=== PATIENT | male | born 1965 | race Caucasian/White ===

== ENCOUNTER 2016-03-02 16:36 | Emergency (ER) | payer OTHER ==
[~2016-03-02] VITALS: Ht 172.7 cm; Wt 81.5 kg
[~2016-03-02 16:36] MED LIST: BACT800T5 PO; CEPH500C3 PO; IBUP800T23 PO
[2016-03-02 16:49] VITALS: BP 160/101; PULSE 67; RESP 16; TEMP 98.7; O2SAT 98
[2016-03-02 17:54] VITALS: BP 180/86
--- NOTE | 2016-03-02 17:57 | PD ---
HPI Chief Complaint: Skin Problem Time Seen by Provider: 17:52 Travel History International Travel<30 days: No Contact w/Intl Traveler<30days: No Traveled to known affect area: No History of Present Illness HPI 50-year-old male presents to the emergency department with complaints of abscess to his right armpit 4 days. Reports headache to the back of his neck for the last 4 days also; when asked the location the patient points to the back of his neck. Describes the pain as a throbbing pain. This is constant. Denies any heavy lifting strain, neck injury. Says the pain radiates up to his head. Denies fever, chills. Reports vomiting after taking an aspirin on Tuesday morning, but has not vomited since. Denies nausea. Had abscesses in his left armpit back in August 2015. Denies paresthesias, loss of sensation, decreased range of motion, decreased strength to affected extremity. Tried an [id number] topical boil medication without relief of symptoms. His blood pressure is elevated in the ER. He denies history of hypertension and does not currently take medications. Tobacco use daily. Does not have primary care provider. Denies allergies. Denies significant past medical history. No other modifying factors or associated signs and symptoms. 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 They are fluctuant but there is no pointing or drainage. There is a zone of inflammation around it but no lymphangitis. Right upper extremity is supple and non-tense with 2+ radial pulses and sensory intact without erythema or edema. HEAD: Atraumatic. Normocephalic. EYES: Pupils equal and round. No scleral icterus. No injection or drainage. ENT: Mucosa pink and moist. Airway patent. NECK: Trachea midline. No lymphadenopathy. CARDIOVASCULAR: Regular rate and rhythm. No murmur appreciated. RESPIRATORY: No accessory muscle use. Sounds clear and equal bilaterally. GASTROINTESTINAL: Abdomen soft, non-tender, nondistended. Positive bowel sounds. No hepato-splenomegaly, or palpable masses. No guarding. MUSCULOSKELETAL: No obvious deformities. No clubbing. No cyanosis. No edema. NEUROLOGICAL: Awake and alert. Oriented 3. No obvious cranial nerve deficits. Motor grossly within normal limits. Normal speech. PSYCHIATRIC: Appropriate mood and affect; insight and judgment normal. Data Data Last Documented VS Vital Signs Date Time Temp Pulse Resp B/P Pulse Ox O2 Delivery O2 Flow Rate FiO2 03/02/16 18:46 165/80 03/02/16 16:49 98.7 67 16 98 Orders Wound Culture And Gram Stain (03/02/16 17:48) Ketorolac Inj (Toradol Inj) (03/02/16 18:00) MDM Medical Decision Making Medical Screen Exam Complete: Yes Emergency Medical Condition: Yes Medical Record Reviewed: Yes Differential Diagnosis Abscess, folliculitis, hypertension, acute headache, pain Narrative Course 50-year-old male with 3 abscesses to his right armpit that are fluctuant. See my procedure note for incision and drainage. He is also complaining of headache that he has had for the last 4 days with onset of the abscesses to the right armpit. Denies fever, chills, nausea, vomiting. Blood pressure is elevated in the ER. He denies history of hypertension and does not take medications. I reviewed the patient's medical records and his last blood pressure was normal. I feel that his elevated blood pressure and headache related to pain. I will treat the patient with Toradol and reevaluate the patient. Toradol administered in the ER. 1845: BP 165/80. Patient reports improvement in pain in the back of his neck. Dr. Peralta, my attending physician, and he agrees the patient is stable for discharge and can follow up outpatient. Keflex, Bactrim, ibuprofen prescribed for home. Instructed patient to take her blood pressure periodically and to log in a diary and follow up with primary care provider and he verbalized understanding and agreement. Patient is medically cleared and stable for discharge. Discussed reasons to return to the emergency department. Instructed patient to follow up with primary care provider. Patient agrees with treatment plan. The patients vital signs are stable and the patient is stable for outpatient follow-up and treatment. Patient discharged home, stable and in no acute distress. Procedures Procedure Narrative INCISION AND DRAINAGE OF ABSCESS: The area was prepped and was sterilely draped. Ethyl chloride was used to anesthetize the area. The area was properly anesthetized. A number 11 scalpel was used to make a 0.5-cm incision across the area of the abscess. Cultures were obtained. The abscess was drained an irrigated with normal saline. Sterile dressing applied. Diagnosis Primary Impression: Abscess of right axilla Additional Impression: Acute headache Qualified Code: R51 - Acute nonintractable headache, unspecified headache type Referrals: Primary Care Physician Patient Instructions: Abscess (ED), Abscess Follow-up (ED), Abscess Incision and Drainage (ED), Acute Headache (ED), General Instructions, Hypertension (ED) Additional Instructions: Complete full course of antibiotics Warm compresses to the affected area Keep area clean and dry Ibuprofen or Tylenol as recommended for pain and inflammation Check blood pressure periodically and follow-up with primary care provider Follow-up with primary care provider Return to emergency department immediately with worsening of symptoms Med/Other Pt SpecificInfo: Prescription(s) given Scripts Ibuprofen 800 Mg Qun682 Mg PO Q6HR PRN (PAIN) #30 TAB Ref 0 Prov:Blanca Lindo 03/02/16 Sulfamethoxazole-Trimethoprim (Bactrim DS)800-160 Mg Tab1 Tab PO BID 10 Days Ref 0 Prov:Blanca Lindo 03/02/16 Cephalexin (Keflex)500 Mg Isu923 Mg PO Q6H 10 Days Ref 0 Prov:Blanca Lindo 03/02/16 Disposition: 01 DISCHARGE HOME Condition: Stable Blanca Lindo Mar 02, 2016 17:57
[2016-03-02] MEDS ORDERED: IBUPROFEN 800 MG TAB PO ONE (18:00)
[2016-03-02] MEDS ORDERED: KETOROLAC TROMETHAMINE 60 MG/2 ML (IM) VIAL IM ONE (18:00)
[2016-03-02 18:46] VITALS: BP 165/80
[2016-03-02] MEDS ORDERED: BACT800T5 PO (18:54)
[2016-03-02] MEDS ORDERED: IBUP800T23 PO (18:54)
[2016-03-02] MEDS ORDERED: CEPH-460 PO (18:54)
== END 2016-03-02 19:20 | disposition home or self-care (01) ==
LOC: PHEFT 16:36
DX: L02.411 Cutaneous abscess of right axilla (principal); R51 Headache; M54.2 Cervicalgia; R03.0 Elevated blood-pressure reading, without diagnosis of hypertension; B95.62 Methicillin resistant Staphylococcus aureus infection as the cause of diseases classified elsewhere; E11.9 Type 2 diabetes mellitus without complications; F17.200 Nicotine dependence, unspecified, uncomplicated
CPT/HCPCS: 10060; 86403; 87070; 87186; 96372; 99284; J1885; 87205

== ENCOUNTER 2016-12-09 11:03 | Emergency (ER) | payer OTHER ==
[~2016-12-09 11:03] MED LIST changes: +CEPH-460 PO; -CEPH500C3 PO
[2016-12-09 11:16] VITALS: BP 195/91; PULSE 63; RESP 20; TEMP 97.5; O2SAT 100
[2016-12-09] MEDS ORDERED: SODIUM CHLOR 0.9% 1000 ML INJ 1,000 ML IV SCH (11:28)
[2016-12-09] MEDS ORDERED: ONDANSETRON HCL 4 MG/2 ML VIAL IVP ONE (11:30)
[2016-12-09] MEDS ORDERED: LORazepam 2 MG/ML VIAL IV PUSH ONE (11:30)
[2016-12-09] MEDS ORDERED: KETOROLAC TROMETHAMINE 30 MG/ML (IVP) VIAL IVP ONE (11:30)
[2016-12-09] MEDS ORDERED: SODIUM CHLORIDE 0.9% FLUSH 10 ML FLUSH IV FLUSH PRN (11:30)
--- NOTE | 2016-12-09 11:32 | PD ---
HPI Chief Complaint: Flank/Kidney Pain Time Seen by Provider: 11:28 Travel History International Travel<30 days: No Contact w/Intl Traveler<30days: No Traveled to known affect area: No History of Present Illness HPI 51-year-old male patient with history of kidney stones, presents to the ER today because of one day history of left flank pains with radiation down the left side. He states it feels like his previous kidney stones. He has been nauseous and vomiting according to his . He has not had diarrhea, fevers, urinary symptoms, or any other symptoms. Modifying Factors: None Associated Signs & Symptoms: Left flank pain Risk Factors: Kidney stone history PFSH Past Medical History Diabetes: Yes Patient Takes Glucophage: No Diminished Hearing: No Kidney Stones: Yes ?: Not Social History Alcohol Use: Yes (weekends) Tobacco Use: Yes (03/01) Substance Use: No Allergies-Medications (Allergen,Severity, Reaction): Coded Allergies: *MDRO Multi-Drug Resistant Organism (Verified Adverse Reaction, Unknown, 12/09/16) MRSA (arm-09/19/15 & 03/02/16) Reported Meds & Prescriptions Reported Meds & Active Scripts Active No Active Prescriptions or Reported Medications Review of Systems Except as stated in HPI: all other systems reviewed are Neg Physical Exam Narrative GENERAL: Well-developed no age male patient currently in moderate distress. Awake and oriented 3. SKIN: Focused skin assessment warm/dry. HEAD: Atraumatic. Normocephalic. EYES: Pupils equal and round. No scleral icterus. No injection or drainage. ENT: No nasal bleeding or discharge. Mucous membranes pink and moist. NECK: Trachea midline. No JVD. CARDIOVASCULAR: Regular rate and rhythm. No murmur appreciated. RESPIRATORY: No accessory muscle use. Clear to auscultation. Breath sounds equal bilaterally. GASTROINTESTINAL: Abdomen soft, left-sided abdominal tenderness without guarding or rebound, nondistended. Hepatic and splenic margins not palpable. MUSCULOSKELETAL: No obvious deformities. No clubbing. No cyanosis. No edema. BACK: Left CVA tenderness. No rash. No point tenderness on palpation of the spine. NEUROLOGICAL: Awake and alert. No obvious cranial nerve deficits. Motor grossly within normal limits. Normal speech. PSYCHIATRIC: Appropriate mood and affect; insight and judgment normal. Data Data Last Documented VS Vital Signs Date Time Temp Pulse Resp B/P (MAP) Pulse Ox O2 Delivery O2 Flow Rate FiO2 12/09/16 12:39 14 12/09/16 11:40 54 137/76 (96) 99 Room Air 12/09/16 11:16 97.5 Orders Orders Complete Blood Count With Diff (12/09/16 11:28) Comprehensive Metabolic Panel (12/09/16 11:28) Lipase (12/09/16 11:28) Urinalysis - C+S If Indicated (12/09/16 11:28) Ct Abd/Pel W/O Iv Contrast (12/09/16 11:28) Iv Access Insert/Monitor (12/09/16 11:28) Ecg Monitoring (12/09/16:) Oximetry (12/09/16 11:28) Ondansetron Inj (Zofran Inj) (12/09/16 11:30) Sodium Chlor 0.9% 1000 Ml Inj (Ns 1000 M (12/09/16 11:28) Sodium Chloride 0.9% Flush (Ns Flush) (12/09/16 11:30) Ketorolac Inj (Toradol Inj) (12/09/16 11:30) Lorazepam Inj (Ativan Inj) (12/09/16 11:30) Ed Discharge Order (12/09/16 12:57) Labs Laboratory Tests Test 12/09/16 11:30 12/09/16 12:30 White Blood Count 9.8 TH/MM3 Red Blood Count 4.96 MIL/MM3 Hemoglobin 15.2 GM/DL Hematocrit 45.0 % Mean Corpuscular Volume 90.7 FL Mean Corpuscular Hemoglobin 30.6 PG Mean Corpuscular Hemoglobin Concent 33.8 % Red Cell Distribution Width 13.2 % Platelet Count 324 TH/MM3 Mean Platelet Volume 6.7 FL Neutrophils (%) (Auto) 66.6 % Lymphocytes (%) (Auto) 23.2 % Monocytes (%) (Auto) 5.8 % Eosinophils (%) (Auto) 3.6 % Basophils (%) (Auto) 0.8 % Neutrophils # (Auto) 6.4 TH/MM3 Lymphocytes # (Auto) 2.3 TH/MM3 Monocytes # (Auto) 0.6 TH/MM3 Eosinophils # (Auto) 0.4 TH/MM3 Basophils # (Auto) 0.1 TH/MM3 CBC Comment DIFF FINAL Differential Comment Blood Urea Nitrogen 22 MG/DL Creatinine 1.10 MG/DL Random Glucose 133 MG/DL Total Protein 7.7 GM/DL Albumin 3.9 GM/DL Calcium Level 8.9 MG/DL Alkaline Phosphatase 89 U/L Aspartate Amino Transf (AST/SGOT) 23 U/L Alanine Aminotransferase (ALT/SGPT) 42 U/L Total Bilirubin 0.7 MG/DL Sodium Level 142 MEQ/L Potassium Level 3.3 MEQ/L Chloride Level 109 MEQ/L Carbon Dioxide Level 23.7 MEQ/L Anion Gap 9 MEQ/L Estimat Glomerular Filtration Rate 71 ML/MIN Lipase 213 U/L Urine Collection Type CLEAN CATCH Urine Color YELLOW Urine Turbidity CLEAR Urine pH 7.0 Urine Specific [place] 1.013 Urine Protein TRACE mg/dL Urine Glucose (UA) NEG mg/dL Urine Ketones 15 mg/dL Urine Occult Blood LARGE Urine Nitrite NEG Urine Bilirubin NEG Urine Leukocyte Esterase NEG Urine RBC 100-200 /hpf Urine WBC 6-8 /hpf Urine Squamous Epithelial Cells 0-5 /hpf Microscopic Urinalysis Comment CULT NOT INDICATED Urine Collection Time 12:30 [facility] Medical Decision Making Medical Screen Exam Complete: Yes Emergency Medical Condition: Yes Medical Record Reviewed: Yes Interpretation(s) Laboratory Tests Test 12/09/16 11:30 12/09/16 12:30 Mean Platelet Volume 6.7 FL (7.0-11.0) Blood Urea Nitrogen 22 MG/DL (7-18) Random Glucose 133 MG/DL (74-106) Potassium Level 3.3 MEQ/L (3.5-5.1) Chloride Level 109 MEQ/L (98-107) Estimat Glomerular Filtration Rate 71 ML/MIN (>89) Urine Ketones 15 mg/dL (NEG) Urine Occult Blood LARGE (NEG) Urine RBC 100-200 /hpf (0-3) Urine WBC 6-8 /hpf (0-5) Last 24 hours Impressions Abdomen/Pelvis CT 12/09/16 1128 Signed Impressions: Service Date/Time: November 11:46 - CONCLUSION: 4 mm distal left ureteral stone just below the level of the SI joint 4 cm proximal to the UV junction. This yields hydroureter proximally and hydronephrosis. Additionally appreciated is a calyceal 3 or 4 mm stone upper pole of the left kidney Manjinder Lara MD Differential Diagnosis Left flank pains and left sided abdominal pains: Renal colic versus obstruction versus other acute intra-abdominal processes Narrative Course Patient was given IV fluids, Toradol, Zofran, and Ativan in the ER. CAT scan shows a 4 mm stone in the distal ureter. On reevaluation at 12:50 PM, he is feeling improved and pain is more controlled. Vital signs are stable in the ER. At this point, my plan would be to release the patient with follow-up to urology. Strain urine. Return for any worsening in symptoms as necessary. The plan has discussed with the patient and he states understanding. Diagnosis Primary Impression: Renal colic on left side Med/Other Pt SpecificInfo: Prescription(s) given Scripts Alfuzosin ER 24 HR (Uroxatral ER 24 HR) 10 Mg Tab 10 MG PO DAILY for BPH, #7 TAB 0 Refills Prov: Jett Landa MD 12/09/16 Ondansetron Odt (Zofran Odt) 4 Mg Tab 4 MG SL Q6HR Y for Nausea/Vomiting, #7 TAB 0 Refills Prov: Jett Landa MD 12/09/16 Hydrocodone-Acetaminophen (Lortab) 5-325 Mg Tab 1-2 TAB PO Q6H Y for PAIN GREATER THAN 6, #15 TAB 0 Refills Prov: Jett Landa MD 12/09/16 Ibuprofen (Motrin Ib) 200 Mg Tablet 600 MG PO QID Y for PAIN SCALE 1 TO 10, #20 Prov: Jett Landa MD 12/09/16 Disposition: 01 DISCHARGE HOME Condition: Stable Jett Landa MD Dec 09, 2016 11:32
[2016-12-09 11:40] VITALS: BP 137/76; PULSE 54; RESP 18; O2SAT 99
[2016-12-09 11:51] LABS: AUTOMATED NEUTROPHIL # 6.4 TH/MM3 (1.8-7.7); BASOPHIL # 0.1 TH/MM3 (0-0.2); BASOPHIL % 0.8 % (0.0-2.0); EOSINOPHIL # 0.4 TH/MM3 (0-0.4); EOSINOPHIL % 3.6 % (0.0-4.0); LYMPH % 23.2 % (9.0-44.0); LYMPHOCYTE # 2.3 TH/MM3 (1.0-4.8); MEAN CELL VOLUME 90.7 FL (80.0-100.0); MEAN CORPUSCULAR HEMOGLOBIN 30.6 PG (27.0-34.0); MEAN CORPUSCULAR HGB CONC 33.8 % (32.0-36.0); MONO % 5.8 % (0.0-8.0); NEUT % 66.6 % (16.0-70.0); PLATELET COUNT 324 TH/MM3 (150-450); RED BLOOD COUNT 4.96 MIL/MM3 (4.50-5.90); RED CELL DISTRIBUTION WIDTH 13.2 % (11.6-17.2); WHITE BLOOD COUNT 9.8 TH/MM3 (4.0-11.0)
[2016-12-09 11:54] LABS: HEMO FLAGS DIFF FINAL
[2016-12-09 12:04] LABS: CHLORIDE 109 MEQ/L (98-107); POTASSIUM 3.3 MEQ/L (3.5-5.1); SODIUM (NA) 142 MEQ/L (136-145)
[2016-12-09 12:09] LABS: ANION GAP 9 MEQ/L (5-15); BICARBONATE 23.7 MEQ/L (21.0-32.0); BLOOD UREA NITROGEN 22 MG/DL (7-18)
[2016-12-09 12:12] LABS: ALT (GPT) 42 U/L (12-78); AST (GOT) 23 U/L (15-37); GLOMERULAR FILTRATION RATE 71 ML/MIN (>89)
[2016-12-09 12:13] LABS: TOTAL BILIRUBIN ADULT 0.7 MG/DL (0.2-1.0)
[2016-12-09 12:15] LABS: ALKALINE PHOSPHATASE 89 U/L (45-117)
--- NOTE | 2016-12-09 12:23 | RADRPT ---
EXAM DATE/TIME: 12/09/2016 11:46 [facility] COMPARISON: No previous studies available for comparison. INDICATIONS : Left flank pain. Nausea and vomiting. ORAL CONTRAST: No oral contrast ingested. RADIATION DOSE: 11.86 CTDIvol (mGy) MEDICAL HISTORY : Renal calculi. Diabetes mellitus type 2. SURGICAL HISTORY : None. ENCOUNTER: Initial ACUITY: 1 day PAIN SCALE: 8/10 LOCATION: Left flank TECHNIQUE: Volumetric scanning of the abdomen and pelvis was performed. Using automated exposure control and ad justment of the mA and/or kV according to patient size, radiation dose was kept as low as reasonably achievable to obtain optimal diagnostic quality images. DICOM format image data is available electro nically for review and comparison. FINDINGS: LOWER LUNGS: The visualized lower lungs are clear. LIVER: Homogeneous density without lesion. There is no dilation of the biliary tree. No calcified gallston es. Gallbladder seen as a luminal structure without wall thickening SPLEEN: Normal size without lesion. PANCREAS: Within normal limits. KIDNEYS: Normal in size and shape. There is a punctate 2-3 mm nonobstructing calculus upper pole left kidney. There is left hydronephrosis and ureter to the pelvis just below the level of the SI joint with obstr uction secondary to a 4 mm ureteral calculus 4-5 cm proximal to UVJ junction. ADRENAL GLANDS: Within normal limits. VASCULAR: There is no aortic aneurysm. BOWEL/MESENTERY: The stomach, small bowel, and colon demonstrate no acute abnormality. There is no free intraperitone al air or fluid. Appendix visualized and is normal ABDOMINAL WALL: Within normal limits. RETROPERITONEUM: There is no lymphadenopathy. BLADDER: No wall thickening or mass. REPRODUCTIVE: Within normal limits. INGUINAL: There is no lymphadenopathy or hernia. MUSCULOSKELETAL: Within normal limits for patient age. CONCLUSION: 4 mm distal left ureteral stone just below the level of the SI joint 4 cm proximal to the UV junction . This yields hydroureter proximally and hydronephrosis. Additionally appreciated is a calyceal 3 or 4 mm stone upper pole of the left kidney Manjinder Lara MD on December 09, 2016 at 12:16 Board Certified Radiologist. This report was verified electronically.
[2016-12-09 12:39] VITALS: RESP 14
[2016-12-09 12:42] LABS: BLOOD, URINE LARGE (NEG); GLUCOSE,URINE NEG (NEG); KETONE, URINE 15 mg/dL (NEG); NITRITE,URINE NEG (NEG)
[2016-12-09 12:46] LABS: METHOD OF COLLECTION CLEAN CATCH; URINE COLOR YELLOW (YELLW/STRAW)
[2016-12-09 12:47] LABS: COMMENT (UR) CULT NOT INDICATED; CULTURE IF INDICATED CULT NOT INDICATED; RBC, URINE 100-200 /hpf (0-3); SQUAMOUS EPITHELIAL CELL URINE 0-5 /hpf (0-5)
[2016-12-09] MEDS ORDERED: ZOFR4TAB3 SL (13:01)
[2016-12-09] MEDS ORDERED: UROX10TA3 PO (13:01)
[2016-12-09] MEDS ORDERED: HYDR-3533 PO (13:01)
[2016-12-09] MEDS ORDERED: IBUP-1129 PO (13:01)
== END 2016-12-09 13:19 | disposition home or self-care (01) ==
LOC: PHED 11:03
DX: N20.1 Calculus of ureter (principal); E11.9 Type 2 diabetes mellitus without complications; F17.200 Nicotine dependence, unspecified, uncomplicated; Z87.442 Personal history of urinary calculi
CPT/HCPCS: 74176; 80053; 81001; 83690; 85025; 96361; 96374; 96375; 99285; J1885; J2060; J2405; J7030